=== PATIENT | male | born 1995 | race Caucasian/White ===

== ENCOUNTER 2022-08-13 04:18 | Inpatient (IN) ==
[2022-08-13 08:09] LABS: Influenza A PCR Negative (Negative); Influenza B PCR Negative (Negative); Resp. Syncytial Virus PCR Negative (Negative)
[2022-08-13 08:10] LABS: SARS-CoV-2 by PCR (In House) Negative (Negative)
[2022-08-13] MEDS: risperiDONE 1 MG TABLET PO SCH ×2 (08:59→20:29)
[2022-08-14] MEDS ORDERED: *HR* LORazepam 0.5 MG TABLET PO ONE (02:28)
[2022-08-14] MEDS ORDERED: haloperidoL 5 MG TABLET PO PRN (03:26)
[2022-08-14] MEDS ORDERED: hydrOXYzine pamoate 25 MG CAPSULE PO PRN (03:26)
[2022-08-14] MEDS ORDERED: traZODone 50 MG TABLET PO PRN (03:26)
[2022-08-14] MEDS ORDERED: Acetaminophen 325 MG TABLET PO PRN (03:26)
[2022-08-14] MEDS ORDERED: *HR* LORazepam 2 MG/ML VIAL IM PRN (04:00)
[2022-08-14] MEDS ORDERED: *HR* LORazepam 1 MG TABLET PO PRN (04:00)
[2022-08-14] MEDS ORDERED: Haloperidol Lactate 5 MG/ML VIAL IM PRN (04:00)
[2022-08-14] MEDS: risperiDONE 1 MG TABLET PO SCH (08:43)
[2022-08-14] MEDS ORDERED: MOM Conc 10 ML UD.LIQ PO PRN (11:34)
[2022-08-14] MEDS ORDERED: Mag Hydrox/Al Hydrox/Simeth 30 ML UDC PO PRN (11:34)
[2022-08-14] MEDS: RisperiDAL 3 MG TABLET PO SCH (20:59)
[2022-08-14] MEDS: Melatonin 3 MG TABLET PO SCH (20:59)
[2022-08-15] MEDS: risperiDONE 1 MG TABLET PO SCH (09:04)
[2022-08-15 19:42] VITALS: O2SAT 98
[2022-08-15] MEDS: Melatonin 3 MG TABLET PO SCH (20:11)
[2022-08-15] MEDS: RisperiDAL 3 MG TABLET PO SCH (20:11)
[2022-08-16] MEDS: risperiDONE 1 MG TABLET PO SCH (08:32)
[2022-08-16 09:08] VITALS: BP 131/82; PULSE 86; TEMP 97.7
[2022-08-16] MEDS ORDERED: Flu Vac QV 22-23 (6MOS UP)/PF 0.5 ML SYRINGE IM ONE (09:52)
== END 2022-08-16 11:55 | disposition home or self-care (01) | DRG 885 ==
LOC: EMEROOARM 04:18 → 1ANU 08-14 03:18
PROVIDERS: ADMIT Psychiatry & Neurology Psychiatry; ATTEND Psychiatry & Neurology Psychiatry